=== PATIENT | female | born 1980 | race Caucasian/White ===

== ENCOUNTER 2017-10-07 18:39 | Outpatient (CLI) | payer MEDICAID ==
[2017-10-07 19:23] LABS: ADD MAN DIFF? NO
[2017-10-07 19:31] LABS: WHITE BLOOD COUNT 6.7 10^3/ul (4.8-10.8)
[2017-10-07 19:31] LABS: BASOPHILS % 0.3 % (0.0-2.0); EOSINOPHILS # 0.1 10^3/ul (0.0-0.5); EOSINOPHILS % 2.1 % (0.0-7.0); HEMATOCRIT 30.8 % (37.0-47.0); HEMOGLOBIN 10.2 g/dl (12.0-16.0); LYMPHOCYTES # 1.4 10^3/ul (0.8-2.9); LYMPHOCYTES % 20.4 % (15.0-51.0); MEAN CORPUSCULAR HEMOGLOBIN 26.8 pg (29.0-33.0); MEAN CORPUSCULAR HGB CONC 33.1 g/dl (32.0-37.0); MEAN CORPUSCULAR VOLUME 81.1 fl (82.0-101.0); MEAN PLATELET VOLUME 12.1 fl (7.4-10.4); MONOCYTE # 0.6 10^3/ul (0.3-0.9); MONOCYTES % 9.5 % (0.0-11.0); NEUTROPHIL # 4.5 10^3/ul (1.6-7.5); NEUTROPHILS % 67.3 % (39.0-77.0); PLATELET COUNT 285 10^3/UL (140-415); RED CELL DISTRIBUTION WIDTH 14.4 % (11.5-14.5)
[2017-10-07 19:44] LABS: ADD UMIC YES; UR AMORPHOUS CRYSTAL FEW /HPF (NONE SEEN); UR ASCORBIC ACID NEGATIVE (NEGATIVE); UR BACTERIA FEW /HPF (NONE SEEN); UR BILIRUBIN (Dip) NEGATIVE (NEGATIVE); UR BLOOD (Dip) NEGATIVE (NEGATIVE); UR CLARITY CLEAR (CLEAR); UR COLOR YELLOW (YELLOW); UR GLUCOSE (Dip) NEGATIVE (NEGATIVE); UR KETONES (Dip) NEGATIVE (NEGATIVE); UR LEUKOCYTE ESTERASE (Dip) 1+ Leu/ul (NEGATIVE); UR NITRITE (Dip) NEGATIVE (NEGATIVE); UR RBC 1 /HPF (0-5); UR SPECIFIC GRAVITY (Dip) 1.008 (1.003-1.030); UR SQUAMOUS EPITHELIAL CELL FEW /HPF (FEW); UR TOTAL PROTEIN (Dip) NEGATIVE (NEGATIVE); UR UROBILINOGEN (Dip) NEGATIVE (NEGATIVE); UR WBC 2 /HPF (0-5)
[2017-10-07 19:49] LABS: ALANINE AMINOTRANSFERASE 25 IU/L (13-69); ALBUMIN 3.1 g/dl (3.3-4.9); ALBUMIN/GLOBULIN RATIO 0.96; ALKALINE PHOSPHATASE 124 IU/L (42-121); ANION GAP 10 (8-16); ASPARTATE AMINO TRANSFERASE 21 IU/L (15-46); BILIRUBIN,INDIRECT 0.3 mg/dl (0-1.1); BILIRUBIN,TOTAL 0.3 mg/dl (0.2-1.3); BLOOD UREA NITROGEN 8 mg/dl (7-20); CALCIUM 9.4 mg/dl (8.4-10.2); CARBON DIOXIDE 23 mmol/L (21-31); CHLORIDE 110 mmol/L (97-110); CREATININE 0.49 mg/dl (0.44-1.00); GLUCOSE 119 mg/dl (70-220); SODIUM 140 mmol/L (135-144); TOTAL PROTEIN 6.3 g/dl (6.1-8.1); URIC ACID 4.2 mg/dl (3.1-7.9)
== END 2017-10-07 21:20 | disposition home or self-care (01) ==
LOC: OBT 18:39 → L-D 18:40 → OBT 21:20
DX: O26.613 Liver and biliary tract disorders in pregnancy, third trimester (principal); K83.1 Obstruction of bile duct; O13.3 Gestational [pregnancy-induced] hypertension without significant proteinuria, third trimester; O99.283 Endocrine, nutritional and metabolic diseases complicating pregnancy, third trimester; E03.9 Hypothyroidism, unspecified; O26.893 Other specified pregnancy related conditions, third trimester; E87.6 Hypokalemia; Z3A.33 33 weeks gestation of pregnancy
CPT/HCPCS: 76818; 80053; 81001; 84560; 85025

== ENCOUNTER 2017-10-09 11:32 | Outpatient (CLI) | payer MEDICAID ==
[2017-10-09 12:45] LABS: ADD MAN DIFF? NO
[2017-10-09 12:47] LABS: BASOPHILS % 0.3 % (0.0-2.0); EOSINOPHILS # 0.1 10^3/ul (0.0-0.5); EOSINOPHILS % 1.3 % (0.0-7.0); HEMOGLOBIN 10.9 g/dl (12.0-16.0); LYMPHOCYTES # 1.1 10^3/ul (0.8-2.9); LYMPHOCYTES % 19.2 % (15.0-51.0); MEAN CORPUSCULAR HEMOGLOBIN 27.5 pg (29.0-33.0); MEAN CORPUSCULAR HGB CONC 34.1 g/dl (32.0-37.0); MEAN CORPUSCULAR VOLUME 80.8 fl (82.0-101.0); MEAN PLATELET VOLUME 11.9 fl (7.4-10.4); MONOCYTE # 0.7 10^3/ul (0.3-0.9); MONOCYTES % 12.4 % (0.0-11.0); NEUTROPHILS % 66.5 % (39.0-77.0); PLATELET COUNT 298 10^3/UL (140-415); RED BLOOD COUNT 3.96 10^6/ul (4.20-5.40); RED CELL DISTRIBUTION WIDTH 14.4 % (11.5-14.5)
[2017-10-09 13:04] LABS: ALANINE AMINOTRANSFERASE 27 IU/L (13-69); ALBUMIN 3.2 g/dl (3.3-4.9); ALBUMIN/GLOBULIN RATIO 0.91; ALKALINE PHOSPHATASE 142 IU/L (42-121); ANION GAP 13 (8-16); ASPARTATE AMINO TRANSFERASE 19 IU/L (15-46); BILIRUBIN,INDIRECT 0.1 mg/dl (0-1.1); BILIRUBIN,TOTAL 0.1 mg/dl (0.2-1.3); BLOOD UREA NITROGEN 6 mg/dl (7-20); CALCIUM 8.9 mg/dl (8.4-10.2); CARBON DIOXIDE 22 mmol/L (21-31); CHLORIDE 108 mmol/L (97-110); CREATININE 0.45 mg/dl (0.44-1.00); GLUCOSE 68 mg/dl (70-220); POTASSIUM 3.3 mmol/L (3.5-5.1); SODIUM 140 mmol/L (135-144); TOTAL PROTEIN 6.7 g/dl (6.1-8.1); URIC ACID 3.5 mg/dl (3.1-7.9)
[2017-10-09 13:09] LABS: COLLECTION PERIOD 24 hrs
[2017-10-09 13:25] LABS: 24HR URINE TOTAL PROTEIN 308.8 mg/24hrs (42.0-225.0); VOLUME 1625 mls
[2017-10-09 13:26] LABS: COLLECTION PERIOD 24 hrs; CREATININE CLEARANCE 127.3 mls/min (84.0-162.0); CREATININE,URINE RANDOM 50.77 mg/dl (20-320); SCRET 0.45 mg/dl (0.44-1.00); VOLUME 1625 ml/24hrs
== END 2017-10-09 15:26 | disposition home or self-care (01) ==
LOC: OBT 11:32 → L-D 11:36 → OBT 15:26
DX: O14.93 Unspecified pre-eclampsia, third trimester (principal); Z3A.31 31 weeks gestation of pregnancy
CPT/HCPCS: 76818; 80053; 82575; 84156; 84560; 85025

== ENCOUNTER 2017-10-28 18:37 | Inpatient (IN) | payer MEDICAID ==
[2017-10-28 19:21] LABS: ADD MAN DIFF? NO
[2017-10-28 19:26] LABS: WHITE BLOOD COUNT 6.4 10^3/ul (4.8-10.8)
[2017-10-28 19:26] LABS: ABNORMAL IP MESSAGE 1; BASOPHILS % 0.5 % (0.0-2.0); EOSINOPHILS # 0.1 10^3/ul (0.0-0.5); HEMATOCRIT 32.6 % (37.0-47.0); HEMOGLOBIN 10.9 g/dl (12.0-16.0); LYMPHOCYTES # 1.4 10^3/ul (0.8-2.9); LYMPHOCYTES % 21.5 % (15.0-51.0); MEAN CORPUSCULAR HEMOGLOBIN 26.9 pg (29.0-33.0); MEAN CORPUSCULAR HGB CONC 33.4 g/dl (32.0-37.0); MEAN CORPUSCULAR VOLUME 80.5 fl (82.0-101.0); MEAN PLATELET VOLUME 13.1 fl (7.4-10.4); MONOCYTE # 0.9 10^3/ul (0.3-0.9); MONOCYTES % 13.8 % (0.0-11.0); NEUTROPHILS % 61.9 % (39.0-77.0); PLATELET COUNT 286 10^3/UL (140-415); RED BLOOD COUNT 4.05 10^6/ul (4.20-5.40); RED CELL DISTRIBUTION WIDTH 14.1 % (11.5-14.5)
[2017-10-28 19:27] LABS: POSITIVE DIFF @See below
[2017-10-28 19:29] LABS: ADD UMIC YES; UR ASCORBIC ACID NEGATIVE (NEGATIVE); UR BACTERIA FEW /HPF (NONE SEEN); UR BILIRUBIN (Dip) NEGATIVE (NEGATIVE); UR BLOOD (Dip) NEGATIVE (NEGATIVE); UR CLARITY CLEAR (CLEAR); UR COLOR STRAW (YELLOW); UR GLUCOSE (Dip) NEGATIVE (NEGATIVE); UR KETONES (Dip) NEGATIVE (NEGATIVE); UR LEUKOCYTE ESTERASE (Dip) TRACE Leu/ul (NEGATIVE); UR NITRITE (Dip) NEGATIVE (NEGATIVE); UR RBC 1 /HPF (0-5); UR SPECIFIC GRAVITY (Dip) 1.003 (1.003-1.030); UR TOTAL PROTEIN (Dip) NEGATIVE (NEGATIVE); UR UROBILINOGEN (Dip) NEGATIVE (NEGATIVE); UR WBC 2 /HPF (0-5)
[2017-10-28 19:46] LABS: INR 0.81; PROTIME 11.2 Sec (11.9-14.9); PT RATIO 0.9
[2017-10-28 19:47] LABS: PARTIAL THROMBOPLASTIN TIME 27.6 Sec (25.0-35.0)
[2017-10-28 19:50] LABS: ALANINE AMINOTRANSFERASE 39 IU/L (13-69); ALBUMIN 3.4 g/dl (3.3-4.9); ALBUMIN/GLOBULIN RATIO 0.94; ALKALINE PHOSPHATASE 174 IU/L (42-121); ANION GAP 13 (8-16); ASPARTATE AMINO TRANSFERASE 31 IU/L (15-46); BILIRUBIN,INDIRECT 0.2 mg/dl (0-1.1); BILIRUBIN,TOTAL 0.2 mg/dl (0.2-1.3); BLOOD UREA NITROGEN 7 mg/dl (7-20); CALCIUM 9.6 mg/dl (8.4-10.2); CARBON DIOXIDE 23 mmol/L (21-31); CHLORIDE 107 mmol/L (97-110); CREATININE 0.59 mg/dl (0.44-1.00); GLUCOSE 76 mg/dl (70-220); POTASSIUM 3.6 mmol/L (3.5-5.1); SODIUM 139 mmol/L (135-144); URIC ACID 4.8 mg/dl (3.1-7.9)
[2017-10-28] MEDS ORDERED: NACL 0.9% 3 ML SYG IV (21:30)
[2017-10-28] MEDS: ACETAMINOPHEN 325 MG TAB PO (22:12)
[2017-10-28] MEDS: BETAMET NA PHOS/AC(6 MG/ML) 5ML INJ IM (22:15)
[2017-10-28] MEDS: URSODIOL 300 MG CAP PO (22:30)
[2017-10-28] MEDS: NACL 0.9% 3 ML SYG IV (22:35)
[2017-10-29] MEDS: AL HYDROX/MG HYDROX/SIMETH 30 ML CUP PO (00:28)
[2017-10-29] MEDS ORDERED: AL HYDROX/MG HYDROX/SIMETH 30 ML CUP PO (00:30)
[2017-10-29] MEDS: ACETAMINOPHEN 325 MG TAB PO ×2 (04:36→14:41)
[2017-10-29] MEDS: LEVOTHYROXINE 112 MCG TAB PO (06:40)
[2017-10-29 07:54] LABS: ADD MAN DIFF? NO
[2017-10-29 08:02] LABS: BASOPHILS % 0.2 % (0.0-2.0); HEMATOCRIT 32.2 % (37.0-47.0); HEMOGLOBIN 10.5 g/dl (12.0-16.0); LYMPHOCYTES # 0.7 10^3/ul (0.8-2.9); LYMPHOCYTES % 11.2 % (15.0-51.0); MEAN CORPUSCULAR HEMOGLOBIN 26.4 pg (29.0-33.0); MEAN CORPUSCULAR HGB CONC 32.6 g/dl (32.0-37.0); MEAN CORPUSCULAR VOLUME 80.9 fl (82.0-101.0); MEAN PLATELET VOLUME 12.9 fl (7.4-10.4); MONOCYTE # 0.1 10^3/ul (0.3-0.9); MONOCYTES % 2.4 % (0.0-11.0); NEUTROPHILS % 85.7 % (39.0-77.0); PLATELET COUNT 267 10^3/UL (140-415); RED BLOOD COUNT 3.98 10^6/ul (4.20-5.40)
[2017-10-29 08:02] LABS: WHITE BLOOD COUNT 5.8 10^3/ul (4.8-10.8)
[2017-10-29 08:27] LABS: ALANINE AMINOTRANSFERASE 43 IU/L (13-69); ALBUMIN 3.1 g/dl (3.3-4.9); ALBUMIN/GLOBULIN RATIO 0.88; ALKALINE PHOSPHATASE 176 IU/L (42-121); ANION GAP 12 (8-16); ASPARTATE AMINO TRANSFERASE 29 IU/L (15-46); BILIRUBIN,INDIRECT 0.2 mg/dl (0-1.1); BILIRUBIN,TOTAL 0.2 mg/dl (0.2-1.3); BLOOD UREA NITROGEN 7 mg/dl (7-20); CARBON DIOXIDE 21 mmol/L (21-31); CHLORIDE 110 mmol/L (97-110); GLUCOSE 103 mg/dl (70-220); POTASSIUM 3.8 mmol/L (3.5-5.1); SODIUM 139 mmol/L (135-144); TOTAL PROTEIN 6.6 g/dl (6.1-8.1)
[2017-10-29] MEDS: PRENATAL VITAMIN PO (09:27)
[2017-10-29] MEDS: ASPIRIN (EC) 81 MG TAB PO (09:27)
[2017-10-29] MEDS: URSODIOL 300 MG CAP PO ×3 (09:28→21:40)
[2017-10-29] MEDS: FERROUS SULFATE (EC) 325 MG TAB PO ×2 (09:35→20:57)
[2017-10-29] MEDS: DIPHENHYDRAMINE 50 MG CAP PO (17:47)
[2017-10-29 20:47] LABS: COLLECTION PERIOD 24 hrs
[2017-10-29 21:46] LABS: COLLECTION PERIOD 24 hrs
[2017-10-29 21:47] LABS: 24HR URINE TOTAL PROTEIN 555.5 mg/24hrs (42.0-225.0); CREATININE CLEARANCE 136.1 mls/min (84.0-162.0); CREATININE,URINE RANDOM 38.82 mg/dl (20-320); VOLUME 2525 ml/24hrs; VOLUME 2525 mls
[2017-10-29] MEDS: BETAMET NA PHOS/AC(6 MG/ML) 5ML INJ IM (22:27)
[2017-10-30] MEDS: LACTATED RINGER'S 1,000 ML IV ×4 (02:06→21:31)
[2017-10-30] MEDS: ACETAMINOPHEN 325 MG TAB PO ×2 (05:11→20:44)
[2017-10-30 07:30] LABS: ADD MAN DIFF? NO
[2017-10-30 07:34] LABS: ABNORMAL IP MESSAGE 1; BASOPHILS % 0.1 % (0.0-2.0); HEMATOCRIT 30.8 % (37.0-47.0); LYMPHOCYTES # 0.9 10^3/ul (0.8-2.9); LYMPHOCYTES % 12.3 % (15.0-51.0); MEAN CORPUSCULAR HEMOGLOBIN 26.4 pg (29.0-33.0); MEAN CORPUSCULAR HGB CONC 32.5 g/dl (32.0-37.0); MEAN CORPUSCULAR VOLUME 81.3 fl (82.0-101.0); MEAN PLATELET VOLUME 13.1 fl (7.4-10.4); MONOCYTE # 0.3 10^3/ul (0.3-0.9); MONOCYTES % 4.2 % (0.0-11.0); NEUTROPHIL # 5.7 10^3/ul (1.6-7.5); NEUTROPHILS % 82.1 % (39.0-77.0); PLATELET COUNT 251 10^3/UL (140-415); RED BLOOD COUNT 3.79 10^6/ul (4.20-5.40); RED CELL DISTRIBUTION WIDTH 14.4 % (11.5-14.5)
[2017-10-30 07:34] LABS: WHITE BLOOD COUNT 6.9 10^3/ul (4.8-10.8)
[2017-10-30 07:57] LABS: POSITIVE DIFF @See below
[2017-10-30 08:06] LABS: ALANINE AMINOTRANSFERASE 41 IU/L (13-69); ALKALINE PHOSPHATASE 169 IU/L (42-121); ANION GAP 10 (8-16); ASPARTATE AMINO TRANSFERASE 31 IU/L (15-46); BLOOD UREA NITROGEN 7 mg/dl (7-20); CALCIUM 8.7 mg/dl (8.4-10.2); CARBON DIOXIDE 22 mmol/L (21-31); CHLORIDE 112 mmol/L (97-110); CREATININE 0.47 mg/dl (0.44-1.00); GLUCOSE 112 mg/dl (70-220); POTASSIUM 3.9 mmol/L (3.5-5.1); SODIUM 140 mmol/L (135-144); TOTAL PROTEIN 6.3 g/dl (6.1-8.1); URIC ACID 4.8 mg/dl (3.1-7.9)
[2017-10-30] MEDS: URSODIOL 300 MG CAP PO ×3 (08:53→21:21)
[2017-10-30] MEDS: FERROUS SULFATE (EC) 325 MG TAB PO ×2 (08:53→21:21)
[2017-10-30] MEDS: PRENATAL VITAMIN PO (08:53)
[2017-10-30] MEDS: LEVOTHYROXINE 112 MCG TAB PO (11:00)
[2017-10-30] MEDS: ASPIRIN (EC) 81 MG TAB PO (11:00)
[2017-10-30] MEDS: CEPASTAT LOZENGE MT (18:01)
[2017-10-31] MEDS: LACTATED RINGER'S 1,000 ML IV ×2 (05:11→14:11)
[2017-10-31] MEDS: LEVOTHYROXINE 112 MCG TAB PO (06:34)
[2017-10-31] MEDS: ASPIRIN (EC) 81 MG TAB PO (10:40)
[2017-10-31] MEDS: FERROUS SULFATE (EC) 325 MG TAB PO ×2 (10:40→21:40)
[2017-10-31] MEDS: PRENATAL VITAMIN PO (10:40)
[2017-10-31] MEDS: URSODIOL 300 MG CAP PO ×3 (10:40→21:39)
[2017-10-31] MEDS: ACETAMINOPHEN 325 MG TAB PO (13:37)
[2017-10-31 15:21] LABS: ADD MAN DIFF? NO
[2017-10-31 15:23] LABS: WHITE BLOOD COUNT 7.2 10^3/ul (4.8-10.8)
[2017-10-31 15:23] LABS: BASOPHILS % 0.3 % (0.0-2.0); EOSINOPHILS # 0.1 10^3/ul (0.0-0.5); EOSINOPHILS % 0.8 % (0.0-7.0); HEMATOCRIT 31.4 % (37.0-47.0); HEMOGLOBIN 10.3 g/dl (12.0-16.0); LYMPHOCYTES # 1.2 10^3/ul (0.8-2.9); MEAN CORPUSCULAR HGB CONC 32.8 g/dl (32.0-37.0); MEAN CORPUSCULAR VOLUME 82.2 fl (82.0-101.0); MEAN PLATELET VOLUME 12.7 fl (7.4-10.4); MONOCYTE # 0.7 10^3/ul (0.3-0.9); MONOCYTES % 9.7 % (0.0-11.0); NEUTROPHIL # 5.2 10^3/ul (1.6-7.5); NEUTROPHILS % 71.7 % (39.0-77.0); NUCLEATED RED BLOOD CELLS% 0.3 /100WBC (0.0-0.0); PLATELET COUNT 264 10^3/UL (140-415); RED BLOOD COUNT 3.82 10^6/ul (4.20-5.40); RED CELL DISTRIBUTION WIDTH 14.6 % (11.5-14.5)
[2017-10-31 15:42] LABS: ALANINE AMINOTRANSFERASE 51 IU/L (13-69); ALBUMIN/GLOBULIN RATIO 0.96; ALKALINE PHOSPHATASE 161 IU/L (42-121); ANION GAP 12 (8-16); ASPARTATE AMINO TRANSFERASE 31 IU/L (15-46); BLOOD UREA NITROGEN 6 mg/dl (7-20); CALCIUM 8.5 mg/dl (8.4-10.2); CARBON DIOXIDE 22 mmol/L (21-31); CHLORIDE 112 mmol/L (97-110); CREATININE 0.45 mg/dl (0.44-1.00); GLUCOSE 102 mg/dl (70-220); POTASSIUM 3.5 mmol/L (3.5-5.1); SODIUM 142 mmol/L (135-144); TOTAL PROTEIN 6.1 g/dl (6.1-8.1)
[2017-10-31 15:42] LABS: URIC ACID 3.4 mg/dl (3.1-7.9)
[2017-11-01] MEDS: LEVOTHYROXINE 112 MCG TAB PO (08:06)
[2017-11-01] MEDS: FERROUS SULFATE (EC) 325 MG TAB PO (08:51)
[2017-11-01] MEDS: URSODIOL 300 MG CAP PO ×2 (08:51→12:52)
[2017-11-01] MEDS: PRENATAL VITAMIN PO (08:51)
[2017-11-01] MEDS: ASPIRIN (EC) 81 MG TAB PO (09:19)
[2017-11-01] MEDS: LACTATED RINGER'S 1,000 ML IV (09:20)
== END 2017-11-01 15:04 | disposition home or self-care (01) | DRG 781 ==
LOC: OBT 18:37 → L-D 18:37 → OBT 21:10 → L-D 21:10
DX: O26.613 Liver and biliary tract disorders in pregnancy, third trimester (principal); K83.1 Obstruction of bile duct; O13.3 Gestational [pregnancy-induced] hypertension without significant proteinuria, third trimester; Z3A.34 34 weeks gestation of pregnancy
CPT/HCPCS: 36415; 76818; 80053; 81001; 82575; 84156; 84560; 85025; 85610; 85730

== ENCOUNTER 2017-11-03 09:47 | Outpatient (CLI) | payer MEDICAID ==
[2017-11-03 10:34] LABS: ADD MAN DIFF? NO
[2017-11-03 10:40] LABS: BASOPHILS % 0.3 % (0.0-2.0); EOSINOPHILS # 0.2 10^3/ul (0.0-0.5); EOSINOPHILS % 2.5 % (0.0-7.0); HEMATOCRIT 35.2 % (37.0-47.0); HEMOGLOBIN 11.6 g/dl (12.0-16.0); LYMPHOCYTES # 1.3 10^3/ul (0.8-2.9); LYMPHOCYTES % 14.9 % (15.0-51.0); MEAN CORPUSCULAR HEMOGLOBIN 26.9 pg (29.0-33.0); MEAN CORPUSCULAR VOLUME 81.5 fl (82.0-101.0); MEAN PLATELET VOLUME 12.7 fl (7.4-10.4); MONOCYTE # 0.7 10^3/ul (0.3-0.9); MONOCYTES % 7.6 % (0.0-11.0); NEUTROPHIL # 6.7 10^3/ul (1.6-7.5); NEUTROPHILS % 73.9 % (39.0-77.0); PLATELET COUNT 320 10^3/UL (140-415); RED BLOOD COUNT 4.32 10^6/ul (4.20-5.40); RED CELL DISTRIBUTION WIDTH 14.6 % (11.5-14.5)
[2017-11-03 10:42] LABS: ADD UMIC YES; UR ASCORBIC ACID NEGATIVE (NEGATIVE); UR BACTERIA FEW /HPF (NONE SEEN); UR BILIRUBIN (Dip) NEGATIVE (NEGATIVE); UR BLOOD (Dip) NEGATIVE (NEGATIVE); UR CLARITY CLEAR (CLEAR); UR COLOR YELLOW (YELLOW); UR GLUCOSE (Dip) NEGATIVE (NEGATIVE); UR KETONES (Dip) NEGATIVE (NEGATIVE); UR LEUKOCYTE ESTERASE (Dip) TRACE Leu/ul (NEGATIVE); UR NITRITE (Dip) NEGATIVE (NEGATIVE); UR RBC 0 /HPF (0-5); UR SPECIFIC GRAVITY (Dip) 1.014 (1.003-1.030); UR SQUAMOUS EPITHELIAL CELL FEW /HPF (FEW); UR TOTAL PROTEIN (Dip) NEGATIVE (NEGATIVE); UR UROBILINOGEN (Dip) NEGATIVE (NEGATIVE); UR WBC 3 /HPF (0-5)
[2017-11-03 11:01] LABS: ALANINE AMINOTRANSFERASE 41 IU/L (13-69); ALBUMIN 3.7 g/dl (3.3-4.9); ALBUMIN/GLOBULIN RATIO 1.02; ALKALINE PHOSPHATASE 162 IU/L (42-121); ANION GAP 13 (8-16); ASPARTATE AMINO TRANSFERASE 24 IU/L (15-46); BILIRUBIN,INDIRECT 0.2 mg/dl (0-1.1); BILIRUBIN,TOTAL 0.2 mg/dl (0.2-1.3); BLOOD UREA NITROGEN 9 mg/dl (7-20); CALCIUM 9.5 mg/dl (8.4-10.2); CARBON DIOXIDE 21 mmol/L (21-31); CHLORIDE 107 mmol/L (97-110); CREATININE 0.49 mg/dl (0.44-1.00); GLUCOSE 106 mg/dl (70-220); POTASSIUM 3.2 mmol/L (3.5-5.1); SODIUM 138 mmol/L (135-144); TOTAL PROTEIN 7.3 g/dl (6.1-8.1); URIC ACID 4.7 mg/dl (3.1-7.9)
== END 2017-11-03 11:45 | disposition home or self-care (01) ==
LOC: OBT 09:47 → L-D 09:48 → OBT 11:45
DX: O26.613 Liver and biliary tract disorders in pregnancy, third trimester (principal); K83.1 Obstruction of bile duct; O09.523 Supervision of elderly multigravida, third trimester; Z3A.35 35 weeks gestation of pregnancy
CPT/HCPCS: 76818; 80053; 81001; 84560; 85025

== ENCOUNTER 2017-11-05 19:49 | Inpatient (IN) | payer MEDICAID ==
[2017-11-05 20:51] LABS: ADD UMIC NO; UR ASCORBIC ACID NEGATIVE (NEGATIVE); UR BILIRUBIN (Dip) NEGATIVE (NEGATIVE); UR BLOOD (Dip) NEGATIVE (NEGATIVE); UR CLARITY CLEAR (CLEAR); UR COLOR STRAW (YELLOW); UR GLUCOSE (Dip) NEGATIVE (NEGATIVE); UR KETONES (Dip) NEGATIVE (NEGATIVE); UR LEUKOCYTE ESTERASE (Dip) NEGATIVE Leu/ul (NEGATIVE); UR NITRITE (Dip) NEGATIVE (NEGATIVE); UR SPECIFIC GRAVITY (Dip) 1.003 (1.003-1.030); UR TOTAL PROTEIN (Dip) NEGATIVE (NEGATIVE); UR UROBILINOGEN (Dip) NEGATIVE (NEGATIVE)
[2017-11-05 21:26] LABS: ADD MAN DIFF? NO
[2017-11-05 21:28] LABS: WHITE BLOOD COUNT 7.2 10^3/ul (4.8-10.8)
[2017-11-05 21:28] LABS: HEMATOCRIT 34.1 % (37.0-47.0); MEAN CORPUSCULAR HEMOGLOBIN 26.3 pg (29.0-33.0); MEAN CORPUSCULAR HGB CONC 32.3 g/dl (32.0-37.0); MEAN CORPUSCULAR VOLUME 81.4 fl (82.0-101.0); RED BLOOD COUNT 4.19 10^6/ul (4.20-5.40)
[2017-11-05 21:29] LABS: BASOPHILS % 0.3 % (0.0-2.0); EOSINOPHILS # 0.2 10^3/ul (0.0-0.5); EOSINOPHILS % 2.5 % (0.0-7.0); LYMPHOCYTES # 1.4 10^3/ul (0.8-2.9); LYMPHOCYTES % 18.8 % (15.0-51.0); MEAN PLATELET VOLUME 12.8 fl (7.4-10.4); MONOCYTE # 0.9 10^3/ul (0.3-0.9); MONOCYTES % 12.7 % (0.0-11.0); NEUTROPHIL # 4.7 10^3/ul (1.6-7.5); PLATELET COUNT 328 10^3/UL (140-415); RED CELL DISTRIBUTION WIDTH 15.3 % (11.5-14.5)
[2017-11-05 21:56] LABS: ALANINE AMINOTRANSFERASE 34 IU/L (13-69); ALBUMIN 3.5 g/dl (3.3-4.9); ALBUMIN/GLOBULIN RATIO 0.97; ALKALINE PHOSPHATASE 179 IU/L (42-121); ANION GAP 14 (8-16); ASPARTATE AMINO TRANSFERASE 27 IU/L (15-46); BILIRUBIN,INDIRECT 0.2 mg/dl (0-1.1); BILIRUBIN,TOTAL 0.2 mg/dl (0.2-1.3); BLOOD UREA NITROGEN 10 mg/dl (7-20); CALCIUM 9.1 mg/dl (8.4-10.2); CARBON DIOXIDE 21 mmol/L (21-31); CHLORIDE 107 mmol/L (97-110); CREATININE 0.56 mg/dl (0.44-1.00); GLUCOSE 77 mg/dl (70-220); POTASSIUM 3.8 mmol/L (3.5-5.1); SODIUM 138 mmol/L (135-144); TOTAL PROTEIN 7.1 g/dl (6.1-8.1); URIC ACID 5.5 mg/dl (3.1-7.9)
[2017-11-05] MEDS: URSODIOL 300 MG CAP PO (23:44)
[2017-11-06] MEDS: LEVOTHYROXINE 112 MCG TAB PO (06:36)
[2017-11-06] MEDS: FERROUS SULFATE (EC) 325 MG TAB PO (09:42)
[2017-11-06] MEDS: URSODIOL 300 MG CAP PO ×3 (09:42→22:56)
[2017-11-06] MEDS: PRENATAL VITAMIN PO (09:42)
[2017-11-06] MEDS: AL HYDROX/MG HYDROX/SIMETH 30 ML CUP PO (18:59)
[2017-11-07] MEDS: LEVOTHYROXINE 112 MCG TAB PO (05:40)
[2017-11-07] MEDS: URSODIOL 300 MG CAP PO ×3 (08:40→21:37)
[2017-11-07] MEDS: PRENATAL VITAMIN PO (08:40)
[2017-11-07] MEDS: FERROUS SULFATE (EC) 325 MG TAB PO (08:40)
[2017-11-07] MEDS: LACTATED RINGER'S 1,000 ML IV ×2 (16:43→23:31)
[2017-11-08] MEDS: LEVOTHYROXINE 112 MCG TAB PO (05:54)
[2017-11-08] MEDS: LACTATED RINGER'S 1,000 ML IV ×2 (07:10→16:29)
[2017-11-08] MEDS: FERROUS SULFATE (EC) 325 MG TAB PO (08:43)
[2017-11-08] MEDS: URSODIOL 300 MG CAP PO ×3 (08:43→21:00)
[2017-11-08] MEDS: PRENATAL VITAMIN PO (08:43)
[2017-11-08] MEDS: ACETAMINOPHEN 325 MG TAB PO ×2 (10:41→15:43)
[2017-11-08 12:45] LABS: HEMATOCRIT 32.9 % (37.0-47.0); HEMOGLOBIN 10.7 g/dl (12.0-16.0); MEAN CORPUSCULAR HEMOGLOBIN 27.1 pg (29.0-33.0); MEAN CORPUSCULAR HGB CONC 32.5 g/dl (32.0-37.0); MEAN CORPUSCULAR VOLUME 83.3 fl (82.0-101.0); MEAN PLATELET VOLUME 12.7 fl (7.4-10.4); PLATELET COUNT 260 10^3/UL (140-415); RED BLOOD COUNT 3.95 10^6/ul (4.20-5.40)
[2017-11-08 12:45] LABS: WHITE BLOOD COUNT 6.2 10^3/ul (4.8-10.8)
[2017-11-08 12:46] LABS: ADD MAN DIFF? YES
[2017-11-08 13:34] LABS: ALANINE AMINOTRANSFERASE 22 IU/L (13-69); ALBUMIN 3.1 g/dl (3.3-4.9); ALBUMIN/GLOBULIN RATIO 0.91; ALKALINE PHOSPHATASE 184 IU/L (42-121); ANION GAP 11 (8-16); ASPARTATE AMINO TRANSFERASE 21 IU/L (15-46); BILIRUBIN,INDIRECT 0.2 mg/dl (0-1.1); BILIRUBIN,TOTAL 0.2 mg/dl (0.2-1.3); BLOOD UREA NITROGEN 6 mg/dl (7-20); CALCIUM 8.6 mg/dl (8.4-10.2); CARBON DIOXIDE 21 mmol/L (21-31); CHLORIDE 112 mmol/L (97-110); CREATININE 0.47 mg/dl (0.44-1.00); GLUCOSE 87 mg/dl (70-220); POTASSIUM 3.9 mmol/L (3.5-5.1); SODIUM 140 mmol/L (135-144); TOTAL PROTEIN 6.5 g/dl (6.1-8.1); URIC ACID 3.8 mg/dl (3.1-7.9)
[2017-11-08 14:22] LABS: BASOPHILS % 0.6 % (0.0-2.0); EOSINOPHILS # 0.1 10^3/ul (0.0-0.5); EOSINOPHILS % 1.9 % (0.0-7.0); LYMPHOCYTES # 1.1 10^3/ul (0.8-2.9); LYMPHOCYTES % 16.9 % (15.0-51.0); MONOCYTE # 0.6 10^3/ul (0.3-0.9); MONOCYTES % 9.6 % (0.0-11.0); NEUTROPHIL # 4.4 10^3/ul (1.6-7.5); NEUTROPHILS % 70.7 % (39.0-77.0)
[2017-11-08] MEDS: ACETAMINOPHEN 500 MG TAB PO (22:04)
[2017-11-09] MEDS: LACTATED RINGER'S 1,000 ML IV ×3 (00:27→17:38)
[2017-11-09] MEDS: LEVOTHYROXINE 112 MCG TAB PO (05:52)
[2017-11-09] MEDS: PRENATAL VITAMIN PO (08:28)
[2017-11-09] MEDS: FERROUS SULFATE (EC) 325 MG TAB PO (08:28)
[2017-11-09] MEDS: URSODIOL 300 MG CAP PO ×3 (08:28→21:21)
[2017-11-10] MEDS: LACTATED RINGER'S 1,000 ML IV ×3 (02:38→17:00)
[2017-11-10] MEDS: LEVOTHYROXINE 112 MCG TAB PO (05:48)
[2017-11-10] MEDS: URSODIOL 300 MG CAP PO ×3 (09:41→21:21)
[2017-11-10] MEDS: PRENATAL VITAMIN PO (09:41)
[2017-11-10] MEDS: FERROUS SULFATE (EC) 325 MG TAB PO (09:41)
[2017-11-10 10:13] LABS: ADD MAN DIFF? NO
[2017-11-10 10:15] LABS: WHITE BLOOD COUNT 6.4 10^3/ul (4.8-10.8)
[2017-11-10 10:15] LABS: BASOPHILS % 0.5 % (0.0-2.0); EOSINOPHILS # 0.1 10^3/ul (0.0-0.5); EOSINOPHILS % 2.2 % (0.0-7.0); HEMOGLOBIN 10.5 g/dl (12.0-16.0); LYMPHOCYTES % 15.1 % (15.0-51.0); MEAN CORPUSCULAR HEMOGLOBIN 27.5 pg (29.0-33.0); MEAN CORPUSCULAR HGB CONC 32.8 g/dl (32.0-37.0); MEAN CORPUSCULAR VOLUME 83.8 fl (82.0-101.0); MEAN PLATELET VOLUME 12.5 fl (7.4-10.4); MONOCYTE # 0.5 10^3/ul (0.3-0.9); MONOCYTES % 7.3 % (0.0-11.0); NEUTROPHIL # 4.8 10^3/ul (1.6-7.5); NEUTROPHILS % 74.4 % (39.0-77.0); PLATELET COUNT 241 10^3/UL (140-415); RED BLOOD COUNT 3.82 10^6/ul (4.20-5.40); RED CELL DISTRIBUTION WIDTH 16.4 % (11.5-14.5)
[2017-11-10 10:55] LABS: INR 0.88; PT RATIO 0.9
[2017-11-10 10:56] LABS: PARTIAL THROMBOPLASTIN TIME 28.7 Sec (25.0-35.0)
[2017-11-10] MEDS: ACETAMINOPHEN 500 MG TAB PO ×2 (11:13→22:35)
[2017-11-10 17:16] LABS: RAPID PLASMA REAGIN NONREACTIVE (NR)
[2017-11-10 21:14] LABS: HEPATITIS B SURFACE ANTIGEN NEGATIVE (NEGATIVE)
[2017-11-11] MEDS: LACTATED RINGER'S 1,000 ML IV (04:58)
[2017-11-11] MEDS: LEVOTHYROXINE 112 MCG TAB PO (06:00)
[2017-11-11] MEDS ORDERED: CEFAZOLIN 2 GM/50 ML (PMX) 50 ML IVPB (07:28)
[2017-11-11] MEDS ORDERED: CARBOPROST 250 MCG INJ IM ×2 (07:30→13:00)
[2017-11-11] MEDS ORDERED: METHYLERGONOVINE 0.2 MG INJ IM (07:30)
[2017-11-11] MEDS ORDERED: MISOPROSTOL 200 MCG TAB PR ×2 (07:30→13:00)
[2017-11-11] MEDS ORDERED: PHENYLephrine (100 MCG/ML) 5ML SYG ×2 (08:59→10:00)
[2017-11-11] MEDS ORDERED: OXYTOCIN 10 UNIT INJ (08:59)
[2017-11-11] MEDS ORDERED: ONDANSETRON 4 MG INJ (08:59)
[2017-11-11] MEDS ORDERED: BUPIVACAINE 0.75%/DEXT (SPINAL) 2 ML INJ (08:59)
[2017-11-11] MEDS ORDERED: morphine SULFATE/PF (10 MG/10 ML) INJ (09:00)
[2017-11-11] MEDS ORDERED: morphine 2 MG INJ IV (10:30)
[2017-11-11] MEDS ORDERED: NALOXONE (0.4 MG/ML) INJ IV (10:30)
[2017-11-11] MEDS ORDERED: DIPHENHYDRAMINE 50 MG INJ IV (10:30)
[2017-11-11] MEDS: OXYTOCIN 30 UNITS/LR 500 ML IV ×2 (10:51→15:38)
[2017-11-11] MEDS: ONDANSETRON 4 MG INJ IV ×2 (10:52→16:21)
[2017-11-11] MEDS: KETOROLAC 30 MG INJ IV (11:46)
[2017-11-11] MEDS ORDERED: OXYTOCIN 30 UNITS/LR 500 ML IV (13:00)
[2017-11-11] MEDS: IBUPROFEN 800 MG TAB PO ×2 (14:00→22:00)
[2017-11-11] MEDS: LANOLIN 7 GM TUBE TOP (16:21)
[2017-11-11] MEDS: LACTATED RINGER'S 500 ML IV (20:21)
[2017-11-11] MEDS: SENNA/DOCUSATE NA (8.6MG/50MG) TAB PO (20:32)
[2017-11-12] MEDS: LACTATED RINGER'S 1,000 ML IV ×3 (05:05→12:43)
[2017-11-12] MEDS: KETOROLAC 30 MG INJ IV (05:46)
[2017-11-12] MEDS: LEVOTHYROXINE 112 MCG TAB PO (05:46)
[2017-11-12] MEDS: IBUPROFEN 800 MG TAB PO ×3 (07:53→21:17)
[2017-11-12] MEDS: SENNA/DOCUSATE NA (8.6MG/50MG) TAB PO ×2 (09:00→21:17)
[2017-11-12] MEDS: OXYCODONE/ACETAMINOPHEN (5/325) TAB PO ×3 (10:17→23:20)
[2017-11-12 11:11] LABS: ADD MAN DIFF? NO
[2017-11-12 11:17] LABS: WHITE BLOOD COUNT 8.6 10^3/ul (4.8-10.8)
[2017-11-12 11:17] LABS: BASOPHILS % 0.3 % (0.0-2.0); EOSINOPHILS # 0.1 10^3/ul (0.0-0.5); EOSINOPHILS % 1.2 % (0.0-7.0); HEMATOCRIT 31.8 % (37.0-47.0); HEMOGLOBIN 10.4 g/dl (12.0-16.0); LYMPHOCYTES # 0.8 10^3/ul (0.8-2.9); MEAN CORPUSCULAR HEMOGLOBIN 27.2 pg (29.0-33.0); MEAN CORPUSCULAR HGB CONC 32.7 g/dl (32.0-37.0); MEAN CORPUSCULAR VOLUME 83.2 fl (82.0-101.0); MEAN PLATELET VOLUME 12.6 fl (7.4-10.4); MONOCYTE # 0.6 10^3/ul (0.3-0.9); MONOCYTES % 6.7 % (0.0-11.0); NEUTROPHIL # 7.1 10^3/ul (1.6-7.5); NEUTROPHILS % 82.5 % (39.0-77.0); PLATELET COUNT 264 10^3/UL (140-415); RED BLOOD COUNT 3.82 10^6/ul (4.20-5.40); RED CELL DISTRIBUTION WIDTH 17.2 % (11.5-14.5)
[2017-11-13] MEDS: IBUPROFEN 800 MG TAB PO ×3 (06:33→22:02)
[2017-11-13] MEDS: LEVOTHYROXINE 112 MCG TAB PO (06:33)
[2017-11-13] MEDS: SENNA/DOCUSATE NA (8.6MG/50MG) TAB PO ×2 (08:44→20:41)
[2017-11-13] MEDS: OXYCODONE/ACETAMINOPHEN (5/325) TAB PO (20:41)
[2017-11-14] MEDS: IBUPROFEN 800 MG TAB PO ×2 (05:33→13:22)
[2017-11-14] MEDS: LEVOTHYROXINE 112 MCG TAB PO (06:13)
[2017-11-14] MEDS: DIPHTH/TET/ACEL PERTUSS (ADULT) 0.5 ML VIAL IM* (09:00)
[2017-11-14] MEDS: SENNA/DOCUSATE NA (8.6MG/50MG) TAB PO (11:54)
== END 2017-11-14 15:20 | disposition home or self-care (01) | DRG 765 ==
LOC: OBT 19:49 → PP1 11-07 02:39 → L-D 11-11 06:46 → OBT 22:35 → L-D 11-11 08:10 → PP1 11-11 12:54
PROC: 10D00Z1 Extraction of Products of Conception, Low, Open Approach (ICD-10-PCS; principal; 2017-11-11 10:00)
PROC: 0UB70ZZ Excision of Bilateral Fallopian Tubes, Open Approach (ICD-10-PCS; 2017-11-11 10:00)
DX: O26.62 Liver and biliary tract disorders in childbirth (principal); K83.1 Obstruction of bile duct; O60.14X0 Preterm labor third trimester with preterm delivery third trimester, not applicable or unspecified; O14.93 Unspecified pre-eclampsia, third trimester; Z3A.36 36 weeks gestation of pregnancy; Z37.0 Single live birth; Z30.2 Encounter for sterilization; O76 Abnormality in fetal heart rate and rhythm complicating labor and delivery
CPT/HCPCS: 76818; 80053; 81003; 84560; 85025; 85610; 85730; 86592; 86850; 86900; 86901; 87340; 88302; 88307; 90715; 99464